=== PATIENT | female | born 1930 | race Hispanic/Latino ===

== ENCOUNTER 2018-03-17 09:41 | Outpatient (CLI) | payer MEDICARE, OTHER ==
--- NOTE | 2018-03-17 10:20 | RAD ---
TWO VIEWS CHEST: Comparison: 03-03-17 History: Renal cell adenoma. FINDINGS: Two views of the chest demonstrates a normal sized cardiomediastinal silhouette. There is a moderate hiatal hernia. There is no evidence of consolidation, mass, or pleural effusion. IMPRESSION: Hiatal hernia. POS: VIMAL
--- NOTE | 2018-03-17 11:48 | ULT ---
RENAL ULTRASOUND: 03/17/2018 HISTORY: An 87-year-old female with a history of benign neoplasm of the left kidney. COMPARISON: 03/03/2017 TECHNIQUE: Multiplanar jordan-scale sonographic imaging of the kidneys and urinary bladder obtained. FINDINGS: The right kidney measures 10.5 x 4.9 cm. There is a 9 x 4 mm, round, hypoechoic lesion at the latera l aspect of the mid pole, right kidney, suggesting a stable, small cyst. No solid renal mass, stone, or hydronephrosis noted. The urinary bladder is grossly unremarkable. The left renal fossa is unre markable, status post left nephrectomy. IMPRESSION: 1. Stable small cyst within the mid pole, right kidney. 2. No hydronephrosis. 3. Left nephrectomy. POS: VIAML
== END 2018-03-17 09:42 | disposition home or self-care (01) ==
LOC: ULT 09:41
PROVIDERS: ATTEND Urology
DX: D30.02 Benign neoplasm of left kidney (principal); Q60.0 Renal agenesis, unilateral; N28.1 Cyst of kidney, acquired; K44.9 Diaphragmatic hernia without obstruction or gangrene; Z90.5 Acquired absence of kidney
CPT/HCPCS: 71046; 76775

== ENCOUNTER 2019-02-11 14:31 | Emergency (ER) | payer MEDICARE, OTHER ==
--- NOTE | 2019-02-11 15:21 | CT ---
EXAM: CT brain without contrast HISTORY: Fell on concrete with head trauma COMPARISON: 11/22/2016 TECHNIQUE: Multiple contiguous axial images were obtained and a CT of the brain without contrast. FINDINGS: There are scattered hypodensities in the subcortical and periventricular white matter consi stent with small vessel ischemic disease. There is no evidence of hydrocephalus, intracranial hemorrhage, or extra-axial fluid collection. The calvarium and overlying soft tissues are unremarkable. The visualized paranasal sinuses and masto id air cells are well aerated. IMPRESSION: No evidence of acute intracranial abnormality
== END 2019-02-11 15:38 | disposition home or self-care (01) ==
LOC: SCSER 14:31
DX: T14.8XXA Other injury of unspecified body region, initial encounter (principal); E03.9 Hypothyroidism, unspecified; I10 Essential (primary) hypertension; J45.909 Unspecified asthma, uncomplicated; Z79.51 Long term (current) use of inhaled steroids; Z79.899 Other long term (current) drug therapy; W01.198A Fall on same level from slipping, tripping and stumbling with subsequent striking against other object, initial encounter
CPT/HCPCS: 70450

== ENCOUNTER 2019-02-13 18:00 | Emergency (ER) | payer MEDICARE, OTHER ==
--- NOTE | 2019-02-13 19:06 | RAD ---
4 views right knee. HISTORY: Fall. Right knee pain AP, lateral and both oblique views right knee obtained. Images demonstrate joint space narrowing with osteophytes seen in the medial, lateral and anterior co mpartments. 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 IMPRESSION: right knee osteoarthritis without evidence of acute fractures.
[2019-02-13] MEDS ORDERED: Ketorolac Tromethamine 30 MG/ML VIAL ONE (19:33)
== END 2019-02-13 19:55 | disposition home or self-care (01) ==
LOC: SCSER 18:00
DX: M17.11 Unilateral primary osteoarthritis, right knee (principal); I10 Essential (primary) hypertension; E03.9 Hypothyroidism, unspecified; J45.909 Unspecified asthma, uncomplicated; Z79.51 Long term (current) use of inhaled steroids; Z79.899 Other long term (current) drug therapy; W19.XXXA Unspecified fall, initial encounter
CPT/HCPCS: 96372; J1885

== ENCOUNTER 2019-03-14 11:38 | Outpatient (CLI) | payer MEDICARE, OTHER ==
--- NOTE | 2019-03-14 12:03 | RAD ---
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 There is a moderate hiatal hernia. There is n o evidence of consolidation, mass, or pleural effusion. The bones are unremarkable. IMPRESSION: No evidence of acute cardiopulmonary disease
--- NOTE | 2019-03-14 13:02 | ULT ---
US Renal Rt Unilateral HISTORY: Renal cyst. Left kidney removed. COMPARISON: 03/09/2018 study. FINDINGS: Real-time imaging of the right kidney shows the kidney to measure 9.2 cm cyst in length. A tiny 8 mm hypoechoic exophytic lesion in the midpole region of the right kidney is most compatible with a cyst it is stable. The left kidney has been removed. Bladder region appears unremarkable. IMPRESSION: 1. Post left nephrectomy change. 2. Stable approximately 8 mm exophytic hypoechoic lesion involving the midpole region of the right ki dney most likely a tiny cyst.
== END 2019-03-14 11:39 | disposition home or self-care (01) ==
LOC: BICULT 11:38
PROVIDERS: ATTEND Urology
DX: D30.02 Benign neoplasm of left kidney (principal); N28.1 Cyst of kidney, acquired; Q60.0 Renal agenesis, unilateral; R93.421 Abnormal radiologic findings on diagnostic imaging of right kidney; Z90.5 Acquired absence of kidney
CPT/HCPCS: 36415; 71046; 76775; 80053; 81001; 87086

== ENCOUNTER 2020-03-18 12:11 | Outpatient (CLI) | payer MEDICARE, OTHER ==
--- NOTE | 2020-03-18 12:52 | ULT ---
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 No ad ditional solitary renal lesion is evident. The right renal cortical thickness was 1.2 cm. Left Kidney: Surgically absent. Size: Not applicable Abnormality: Not applicable Urinary bladder: Prevoid bladder volume was 94 cc. There is a normal right ureteral jet identified. IMPRESSION: 1. Left nephrectomy. 2. Stable 8 mm right mid renal cyst.
--- NOTE | 2020-03-18 13:21 | RAD ---
2 VIEW CHEST: Date: 03/18/2020 HISTORY: Renal cysts. Renal cell adenoma. COMPARISON: 03/14/2019. FINDINGS: Lung baer remain clear. Fixed diaphragmatic hernia again noted. Heart and mediastinum unremarkable. Osseous structures unremarkable and unchanged. Degenerative changes in the thoracic spine are stable . IMPRESSION: Stable chest findings without acute process. POS: AH
== END 2020-03-18 12:12 | disposition home or self-care (01) ==
LOC: BICULT 12:11
PROVIDERS: ATTEND Urology
DX: N28.1 Cyst of kidney, acquired (principal); D30.02 Benign neoplasm of left kidney; R35.0 Frequency of micturition; Q60.0 Renal agenesis, unilateral; Z90.5 Acquired absence of kidney; K44.9 Diaphragmatic hernia without obstruction or gangrene; M47.814 Spondylosis without myelopathy or radiculopathy, thoracic region
CPT/HCPCS: 36415; 71046; 76770; 80053; 81001

== ENCOUNTER 2021-03-21 14:07 | Outpatient (CLI) | payer MEDICARE, OTHER | END 2021-03-21 14:08 | disposition home or self-care (01) | LOC: BICULT 14:07 | PROVIDERS: ATTEND Urology | DX: D30.02 Benign neoplasm of left kidney (principal); N28.1 Cyst of kidney, acquired; Q60.0 Renal agenesis, unilateral | CPT/HCPCS: 74018; 76775 ==